=== PATIENT | female | born 1940 | race Caucasian/White ===

== ENCOUNTER 2022-09-25 12:30 | Inpatient (IN) | payer MEDICARE, BC ==
[~2022-09-25] VITALS: Ht 208.3 cm; Wt 57.3 kg
[2022-10-09] VITALS (7 sets, daily range): BP systolic 125–153; BP diastolic 51–75; PULSE 67–86; TEMP 97.6–98.2
[2022-10-09] MEDS ORDERED: CENTRUM SILVER1 CTB PO (10:37)
[2022-10-09] MEDS ORDERED: HCTZ 25MG TAB25 MG PO (10:38)
[2022-10-09] MEDS ORDERED: DHA PO (10:39)
[2022-10-09] MEDS ORDERED: OMEGA PO (10:39)
[2022-10-09] MEDS ORDERED: EPA PO (10:39)
[2022-10-09] MEDS ORDERED: ZOVIRAX400 MG PO (10:40)
[2022-10-09] MEDS ORDERED: CALCIUM 600MG+D1 TAB PO (10:40)
[2022-10-09] MEDS ORDERED: ULTRAM 50MG TAB50 MG PO (10:41)
[2022-10-09] MEDS ORDERED: CYMBALTA 60MG60 MG PO (10:41)
[2022-10-09] MEDS ORDERED: MIRAPEX0.5 MG PO (10:43)
[2022-10-09] MEDS ORDERED: NORCO 325 MG-51 TAB PO (17:35)
[2022-10-09] MEDS ORDERED: DOXYCYCLINE 10100 MG PO (17:35)
[2022-10-09] MEDS ORDERED: ASPIRIN 81M81 MG/TA2 PO (17:36)
== END 2022-10-09 18:45 | disposition home or self-care (01) | DRG 465 ==
LOC: SDCO 10-09 08:39 → SURG 10-09 09:40 → INPTSU 10-09 09:40 → EDSTATUS 10-09 11:30 → SDCO 10-09 11:30 → SURG 10-09 16:46
PROVIDERS: ADMIT Orthopaedic Surgery
PROC: 0SRC0N9 Replacement of Right Knee Joint with Patellofemoral Synthetic Substitute, Cemented, Open Approach (ICD-10-PCS; 2022-10-09)
PROC: 0SPC0NZ Removal of Patellofemoral Synthetic Substitute from Right Knee Joint, Open Approach (ICD-10-PCS; principal; 2022-10-09 11:30)
DX: T84.84XA Pain due to internal orthopedic prosthetic devices, implants and grafts, initial encounter (principal); Y83.8 Other surgical procedures as the cause of abnormal reaction of the patient, or of later complication, without mention of misadventure at the time of the procedure; K21.9 Gastro-esophageal reflux disease without esophagitis; I10 Essential (primary) hypertension; M19.90 Unspecified osteoarthritis, unspecified site; F32.A Depression, unspecified; G25.81 Restless legs syndrome; G62.9 Polyneuropathy, unspecified; Y92.89 Other specified places as the place of occurrence of the external cause; Z90.710 Acquired absence of both cervix and uterus; Z88.2 Allergy status to sulfonamides; Z88.8 Allergy status to other drugs, medicaments and biological substances; Z91.011 Allergy to milk products
CPT/HCPCS: C1713; C1776; J0690; J1580; J1885; J2250; J2270; J2405; J2704; J2795; J3010; J3370; J7120